=== PATIENT | male | born 1990 | race Caucasian/White ===

== ENCOUNTER 2016-12-16 12:27 | Emergency (ER) | payer SELFPAY ==
[2016-12-16 12:43] VITALS: BP 130/76; PULSE 108; TEMP 98.4; BMI 38.4
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
== END 2016-12-16 15:59 | disposition home or self-care (01) ==
LOC: JERFT 12:27
PROC: 2W3QX1Z Immobilization of Right Lower Leg using Splint (ICD-10-PCS; principal; 2016-12-16)
DX: S82.201D Unspecified fracture of shaft of right tibia, subsequent encounter for closed fracture with routine healing (principal); S82.401D Unspecified fracture of shaft of right fibula, subsequent encounter for closed fracture with routine healing; V29.9XXD Motorcycle rider (driver) (passenger) injured in unspecified traffic accident, subsequent encounter
CPT/HCPCS: 73590-TC-RT; 99281-25

== ENCOUNTER 2017-02-17 10:14 | Emergency (ER) | payer OTHER ==
[2017-02-17 10:24] VITALS: BMI 32.5
--- NOTE | 2017-02-17 11:55 | PDOC ---
Attending Attestation - Resident Resident Name: Siobhan Sharif - ED Attending Attestation I have performed the following: I have examined & evaluated the patient, The case was reviewed & discussed with the resident, I agree w/resident's findings & plan, Exceptions are as noted - Medical Decision Making 02/17/17 11:55 I, Dr. Estelle Smith, DO, attest that this document has been prepared under my direction and personally reviewed by me in its entirety. I further attest, that it accurately reflects all work, treatment, procedures and medical decision -making performed by me.
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
[2017-02-17 13:43] LABS: BASOPHIL 0.6 % (0-2.0); EOSINOPHIL 0.2 % (0-4.5); MCH 27.2 pg (25.7-33.7); MCHC 33.2 g/dl (32.0-35.9); MEAN CELL VOLUME 81.8 fl (80-96); MEAN PLT VOLUME 9.9 fl (7.5-11.1); NEUTROPHILS 68.6 % (42.8-82.8); PLATELET COUNT 295 K/MM3 (134-434); RDW 12.8 % (11.9-15.9); WHITE BLOOD COUNT 11.2 K/mm3 (4.0-10.0)
[2017-02-17 14:06] LABS: INR 1.12 (0.82-1.09); PROTHROMBIN TIME (PATIENT) 12.7 SEC (9.98-11.88)
[2017-02-17 14:26] LABS: ALBUMIN 3.7 g/dl (3.4-5.0); ALK PHOS 109 U/L (45-117); ANION GAP 12 (8-16); BILIRUBIN,TOTAL 0.4 mg/dL (0.2-1.0); CALCIUM 9.3 mg/dL (8.5-10.1); CO2 24 mmol/L (21-32); CREATININE 0.6 mg/dL (0.7-1.3); GLUCOSE,RANDOM 88 mg/dL (74-106); SGOT/AST 14 U/L (15-37); SGPT/ALT 21 U/L (12-78); TOT PROT 8.8 g/dl (6.4-8.2)
[2017-02-17 18:41] VITALS: BP 136/78; PULSE 77; TEMP 97.9
--- NOTE | 2017-02-20 08:25 | PDOC ---
Patient Follow-up (Call Back) - Post ED Follow - Up Condition at time of discharge: Stable Disposition at time of original discharge: TRANSFER ACUTE CARE/OTHER HOSP Reason for Call Back: Abnwl. Microbiology (Wound culture showed Enterobacter cloacae. Patient was transferred to [facility]. Call placed to [facility] patient information Center and states patient was discharged home. Spoke to the emergency room and patient was to follow up with Dr. Alonzo on 02/19 and was discharged home with Augmentin. Will call orthopedist ) - Disposition Additional Instructions/Notes: Called and spoke to answering service was able to send a text to the physician with the results. I also left my extension here if he has additional information. A fax with the results was also sent to [phone].
--- NOTE | 2017-02-20 17:18 | PDOC ---
Patient Follow-up (Call Back) - Post ED Follow - Up Condition at time of discharge: Stable Disposition at time of original discharge: TRANSFER ACUTE CARE/OTHER HOSP Reason for Call Back: Abnwl. Microbiology (Orthopedist Dr. Betancourt called me back and states patient was seen in the clinic yesterday by a colleague and states to please fax the results of the culture and he will follow-up to make sure patient is on the correct antibiotic. [phone])
== END 2017-02-17 18:25 | disposition short-term general hospital (02) ==
LOC: JER 10:14
DX: L02.415 Cutaneous abscess of right lower limb (principal); J45.909 Unspecified asthma, uncomplicated; E11.9 Type 2 diabetes mellitus without complications
CPT/HCPCS: 36415; 73610-TC-RT; 80053; 85025; 85610; 85730; 86850; 86900; 86901; 87070; 87186; 87205; 99282-25

== ENCOUNTER 2018-10-20 17:28 | Emergency (ER) | payer SELFPAY ==
[2018-10-20 17:41] VITALS: BP 134/73; PULSE 95; TEMP 98.2; BMI 36.9
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
[2018-10-20] MEDS ORDERED: NAPROXEN 500 MG TABLET (FP) PO ONE (19:10)
[2018-10-20] MEDS ORDERED: NAPROXEN 500 MG TABLET (FP) ONE (19:16)
== END 2018-10-20 19:19 | disposition home or self-care (01) ==
LOC: JERFT 17:28
DX: M79.661 Pain in right lower leg (principal); R22.41 Localized swelling, mass and lump, right lower limb; Z87.81 Personal history of (healed) traumatic fracture
CPT/HCPCS: 73590-TC-RT-FY; 99282-25